=== PATIENT | male | born 1970 | race Caucasian/White ===

== ENCOUNTER 2017-01-25 02:19 | Inpatient (IN) | payer BC ==
[2017-01-25] VITALS (432 sets, daily range): BP systolic 94–7147; BP diastolic 61–100; PULSE 65–152; TEMP 98.4–98.7; O2SAT 88–98
[~2017-01-25] VITALS: Ht 172.7 cm; Wt 83.4 kg
[~2017-01-25 02:19] MED LIST: ASPIRIN 32325 MG/TAB PO; NO HOME MEDICATIONS
[2017-01-25 02:59] LABS: BASO # 0.1 (0.0-0.2); BASO % 1.2 % (0.0-2.0); EOS # 0.2 (0.0-0.7); EOS % 2.4 % (0-4.0); GRAN # 4.3 (1.4-6.5); GRAN % 53.2 % (42.2-75.2); HEMATOCRIT 48.3 % (42.0-52.0); LYMPH # 2.7 (1.2-3.4); LYMPH % 33.3 % (20.0-51.0); MEAN CELL VOLUME 85 fl (80.0-100.0); MEAN CORPUSCULAR HEMOGLOBIN 30 pg (27.0-31.0); MEAN CORPUSCULAR HGB CONC 35 g/dl (33.0-37.0); MEAN PLATELET VOLUME 10.8 fl (7.4-10.4); MONO # 0.8 (0.1-0.6); MONO % 9.7 % (1.7-9.3); PLATELET COUNT 204 K/mm3 (130-400); RED BLOOD COUNT 5.67 M/mm3 (4.20-5.60); REDCELL DISTRIBUTION WIDTH-CV 12.4 % (11.5-14.5)
[2017-01-25 03:06] LABS: ADJUSTED CALCIUM 8.3 mg/dL (8.4-10.2); ALANINE AMINOTRANSFERASE 51 U/L (21-72); ALBUMIN 4.4 gm/dL (3.5-5.0); ALKALINE PHOSPHATASE 83 U/L (50-136); ANION GAP 17 mmol/L (7-16); BLOOD UREA NITROGEN 14 mg/dL (9-20); CALCIUM 8.6 mg/dL (8.4-10.2); CARBON DIOXIDE 22 mmol/L (22-30); CHLORIDE 106 mmol/L (98-107); CREATININE, serum 0.96 mg/dL (0.66-1.25); GLUCOSE 114 mg/dL (74-106); POTASSIUM 3.6 mmol/L (3.4-5.0); SODIUM 145 mmol/L (137-145); TOTAL PROTEIN 7.6 gm/dL (6.4-8.2)
[2017-01-25 03:17] LABS: B-TYPE NATRIURETIC PEPTIDE 50 pg/mL (0-125)
[2017-01-25 03:19] LABS: TROPONIN-I < 0.012 ng/mL (0.000-0.034)
[2017-01-26] VITALS (7 sets, daily range): BP systolic 120–168; BP diastolic 67–99; PULSE 57–70; TEMP 97.9–98.4
[2017-01-26 08:16] LABS: BASO # 0.1 (0.0-0.2); BASO % 0.7 % (0.0-2.0); EOS # 0.2 (0.0-0.7); EOS % 2.7 % (0-4.0); GRAN # 3.9 (1.4-6.5); GRAN % 56.2 % (42.2-75.2); HEMATOCRIT 45.6 % (42.0-52.0); LYMPH # 2.2 (1.2-3.4); LYMPH % 30.7 % (20.0-51.0); MEAN CELL VOLUME 87 fl (80.0-100.0); MEAN CORPUSCULAR HEMOGLOBIN 30 pg (27.0-31.0); MEAN CORPUSCULAR HGB CONC 35 g/dl (33.0-37.0); MEAN PLATELET VOLUME 11.1 fl (7.4-10.4); MONO # 0.7 (0.1-0.6); MONO % 9.3 % (1.7-9.3); PLATELET COUNT 175 K/mm3 (130-400); RED BLOOD COUNT 5.26 M/mm3 (4.20-5.60); REDCELL DISTRIBUTION WIDTH-CV 12.7 % (11.5-14.5)
[2017-01-26 08:27] LABS: CALCIUM 8.5 mg/dL (8.4-10.2); CREATININE, serum 1.06 mg/dL (0.66-1.25); POTASSIUM 3.6 mmol/L (3.4-5.0)
[2017-01-26 13:10] LABS: MAGNESIUM 2.3 mg/dL (1.6-2.3)
[2017-01-27 03:44] VITALS: BP 152/81; PULSE 54; TEMP 97.9
[2017-01-27 08:07] LABS: CALCIUM 8.7 mg/dL (8.4-10.2); CREATININE, serum 0.97 mg/dL (0.66-1.25); MAGNESIUM 2.2 mg/dL (1.6-2.3); POTASSIUM 3.5 mmol/L (3.4-5.0)
[2017-01-27 08:10] VITALS: BP 149/99; PULSE 67; TEMP 97.8
[2017-01-27 08:10] LABS: BASO # 0.1 (0.0-0.2); BASO % 0.8 % (0.0-2.0); EOS # 0.2 (0.0-0.7); GRAN # 4.4 (1.4-6.5); GRAN % 60.8 % (42.2-75.2); HEMOGLOBIN 15.6 g/dl (13.5-18.0); LYMPH # 1.9 (1.2-3.4); LYMPH % 26.1 % (20.0-51.0); MEAN CELL VOLUME 87 fl (80.0-100.0); MEAN CORPUSCULAR HEMOGLOBIN 30 pg (27.0-31.0); MEAN CORPUSCULAR HGB CONC 35 g/dl (33.0-37.0); MEAN PLATELET VOLUME 11.1 fl (7.4-10.4); MONO # 0.7 (0.1-0.6); PLATELET COUNT 174 K/mm3 (130-400); RED BLOOD COUNT 5.16 M/mm3 (4.20-5.60); REDCELL DISTRIBUTION WIDTH-CV 12.6 % (11.5-14.5); WHITE BLOOD COUNT 7.3 K/mm3 (4.8-10.8)
[2017-01-27] MEDS ORDERED: BETAPACE 80MG80 MG PO (09:20)
[2017-01-27] MEDS ORDERED: ELIQUIS 5MG PO (09:20)
[2017-01-27] MEDS ORDERED: ZESTRIL 20MG TA20 MG PO (09:20)
== END 2017-01-27 14:03 | disposition home or self-care (01) | DRG 310 ==
LOC: COL.ER 02:19 → IMCU 03:06 → MEDICAL 14:55 → IMCU 15:00 → MEDICAL 17:30
PROVIDERS: Emergency Medicine; Internal Medicine Cardiovascular Disease
PROC: 5A2204Z Restoration of Cardiac Rhythm, Single (ICD-10-PCS; principal; 2017-01-25)
DX: I48.0 Paroxysmal atrial fibrillation (principal); E86.0 Dehydration; I10 Essential (primary) hypertension; Z87.891 Personal history of nicotine dependence
CPT/HCPCS: 99223-AI; 99231-AI; 99239; J1650; J2060; J7030; J7050